=== PATIENT | female | born 1980 | race African-American/Black ===

== ENCOUNTER 2016-06-01 14:25 | Emergency (ER) ==
[2016-06-01] MEDS ORDERED: ZOFRAN ODT PO ONE (14:48)
[2016-06-01] MEDS ORDERED: TORADOL IM ONE (14:48)
--- NOTE | 2016-06-01 14:56 | PROVIDER DOCUMENTATION ---
HPI-Abdominal Pain/GI Problem - General Chief Complaint: Flank Pain Stated Complaint: BACK/LEG PAIN Time Seen by Provider: 06/01/16 14:39 Source: patient Allergies/Adverse Reactions: Patient Allergies Allergy/AdvReac Type Severity Reaction Status Date / Time No Known Allergies Allergy Verified 11/11/14 11:17 Home Medications: Home Medication List Medication Instructions Recorded Confirmed Last Taken Type Famotidine [Pepcid] 20 mg PO DAILY #20 tablet 06/01/16 Unknown Rx Ketorolac [Toradol] 10 mg PO Q6H PRN PRN #20 tablet 06/01/16 Unknown Rx Ondansetron [Zofran] 4 mg PO Q6H PRN PRN #20 tablet 06/01/16 Unknown Rx - History of Present Illness-ABD Nature of Presenting Problems: 35 y/o AAF c/o pain in the RLQ that radiates down the leg, began 2 days ago. Saw college or university department head last week, who did urine and vaginal US, both of which were normal. Reports nasuea, no vomiting or diarrhea. Denies fevers, chills or weight loss. Was on an antibiotic 3 weeks ago for uti. Had blood in her urine when the college or university department head saw her and was supposed to refer her to a urologist. Abdominal Pain Onset Location: reports: RLQ Pain Radiation: reports: groin Quality of Pain: reports: aching, stabbing Severity in ED: reports: moderate Onset/Duration: reports: other (2 weeks) Timing: reports: still present, intermittent Modifying Factors: worse with: analgesics, antacids, breathing, cold/heat therapy, coughing, defecating, eating, exercise, immobilization, lying down, massage, movement, other medication, palpation, rest, urinating, vomiting Associated Symptoms: reports: loss of appetite, nausea. denies: anxiety, arm pain, back/neck pain, chest pain, constipation, cough, diaphoresis, diarrhea, dizziness, EENT symptoms, fatigue, fever/chills, genitourinary problems, headaches, heartburn, joint pain, malaise, muscle aches, sinus congestion/ drainage, rash, seizure, shortness of breath, sensory/motor loss, pain with inspiration, swelling/mass in abdomen, syncope, vomiting, weakness, trouble walking Review of Systems - Adult - REVIEW OF SYSTEMS - ADULT Constitutional: reports: no symptoms reported. denies: chills, fever, fatique Eyes: reports: no symptoms reported. denies: blurred vision, double vision, eye pain Ears, Nose, Mouth & Throat: reports: no symptoms reported. denies: ear pain, nose pain, loose teeth, throat pain Cardiovascular: reports: no symptoms reported. denies: chest pain, irregular heart rate, palpitations Respiratory: reports: no symptoms reported. denies: cough, shortness of breath Gastrointestinal: reports: abdominal pain, nausea, poor appetite. denies: constipation, diarrhea, vomiting Genitourinary: reports: no symptoms reported. denies: dysuria, discharge, frequency, flank pain, hematuria, urgency Musculoskeletal: reports: no symptoms reported. denies: bone pain, back pain, muscle aches Integumentary: reports: no symptoms reported. denies: rash Neurological: reports: no symptoms reported. denies: headache/migraines Psychiatric: reports: no symptoms reported Endocrine: reports: no symptoms reported Hematologic/Lymphatic: reports: no symptoms reported Allergic/Immunologic: reports: no symptoms reported All Other Systems: Reviewed and Negative Past History - Adult - PAST MEDICAL HISTORY-ADULT Review of Records: reports: Old Records Reviewed, Nursing Assessment Review, Medications Reviewed, Social history reviewed & non-contributory. Major Childhood Illnesses: reports: denies history Cardiovascular: reports: denies history Respiratory: reports: asthma Gastrointestinal: reports: denies history Obstetrical/Gynecological: reports: denies history Genitourinary: reports: denies history Musculoskeletal: reports: denies history Neurological: reports: denies history Psychiatric: reports: anxiety Endocrine/Immune: reports: denies history Other Conditions: reports: denies history - PRIOR SURGERIES/PROCEDURES Surgical/Procedure History: reports: other (one ovary removed, has uterus and the other ovary (unable to remember which one)) - PRIOR HOSPITALIZATIONS Prior Hospitalizations: reports: none - IMMUNIZATION STATUS Childhood Immunizations: UTD - FAMILY HISTORY Family History: reviewed, not pertinent - SOCIAL HISTORY Smoking: non-smoker Substance Use: none/never Alcohol Use Frequency: occasionally Physical Exam-General - PHYSICAL EXAM-ADULT Initial Vital Signs Reviewed: Yes - CONSTITUTIONAL General Appearance: appears well, alert, no apparent distress - EYES Eyes: PERRL/EOMI, pink conjunctivae - HEAD, EARS, NOSE, MOUTH & THROAT HENMT: normocephalic/atraumatic, moist mucous membranes - NECK Neck: normal inspection - RESPIRATORY Respiratory: chest non-tender, lungs clear, normal breath sounds, no pleuratic chest pain, no respiratory distress, no accessory muscle use. negative: respiratory distress, decreased breath sounds, accessory muscle use, crackles, rales, rhonchi, wheezing - CARDIOVASCULAR Cardiovascular: normal peripheral pulses, regular rate, rhythm - GASTROINTESTINAL (ABDOMEN) Abdominal Exam: normal bowel sounds, soft, no organomegaly, no pulsatile mass, tenderness (rlq). negative: abdominal bruit, abnormal bowel sounds, distended, guarding, rigid, rebound - MUSCULOSKELETAL Back Exam: no CVA tenderness, no vertebral tenderness. negative: CVA tenderness Extremity: normal gait - SKIN Integumentary: normal color, normal turgor, warm/dry - NEUROLOGIC Neurologic: grossly normal, no motor/sensory deficits - PSYCHIATRIC Psych/Mental Status: normal mood/affect, normal thought content, normal thought process, oriented x 3 Progress - PLAN OF CARE/RESULTS Progress/Plan/Lab Results: Vital Signs Temp Pulse Resp BP Pulse Ox 06/01/16 14:28 98 F 81 18 119/83 98 No Known Allergies Allergy (Verified 11/11/14 11:17) No Home Medications 06/01/16 Laboratory 06/01/16 06/01/16 06/01/16 15:30 15:30 14:53 WBC 5.28 RBC 3.81 L Hgb 11.2 L Hct 33.6 L MCV 88.2 MCH 29.4 MCHC 33.3 RDW Std Deviation 12.7 Plt Count 270 MPV 8.7 Immature Gran % (Auto) 0.2 Neut % (Auto) 39.8 L Lymph % (Auto) 44.3 [place] % (Auto) 8.5 Eos % (Auto) 6.3 Baso % (Auto) 0.9 H Immature Gran # (Auto) 0.01 Neut # (Auto) 2.10 Lymph # (Auto) 2.34 [place] # (Auto) 0.45 Eos # (Auto) 0.33 Baso # (Auto) 0.05 Sodium 137 Potassium 4.0 Chloride 102 Carbon Dioxide 27 Anion Gap 8 BUN 10 Creatinine 0.8 Estimated GFR/1.73 m2 > 60 BUN/Creatinine Ratio 13 Glucose 90 Calculated Osmolality 272 Calcium 9.1 Total Bilirubin 0.30 AST 13 ALT 7 L Alkaline Phosphatase 42 Total Protein 7.1 Albumin 4.3 Globulin 3.0 Albumin/Globulin Ratio 2.0 Urine Source CLEAN CATCH Urine Color YELLOW Urine Clarity CLEAR Urine pH 7.0 Ur Specific [place] 1.015 Urine Protein TRACE A Urine Ketones NEGATIVE Urine Blood 4+ Urine Nitrite NEGATIVE Urine Bilirubin NEGATIVE Urine Urobilinogen NORMAL Urine Microscopic RBC 20-40 A Urine WBC TRACE A Urine Microscopic WBC <10 Ur Epithelial Cells >10 A Urine Glucose NEGATIVE Orders Category Date Time Status ED: Urine Bedside ORDERED Care 06/01/16 14:40 Active LUMBAR SPINE [RAD] Stat Exams 06/01/16 14:40 Completed RENAL STONE SEARCH [CT] Stat Exams 06/01/16 15:45 Taken CBC WITH ELECTRONIC DIFF [HEME] Stat Lab 06/01/16 15:30 Completed CMP [COMPREHENSIVE METABOLIC PANEL] [CHEM] Stat Lab 06/01/16 15:[address] W/POSS RFLX CULT [URINALYSIS] Stat Lab 06/01/16 14:53 Completed Ketorolac [Toradol] Med 06/01/16 14:48 Discontinued 30 mg IM NOW ONE Ondansetron Odt [Zofran Odt] Med 06/01/16 14:48 Discontinued 4 mg PO NOW ONE - XRAY 1 XRAY: Bilateral XRAY Study: Lumbar Spine Impression: Normal (NAD per radiology) - CT/MRI 1 CT Study: Renal Stone Impression: Normal (no renal stones, urolithiasis, appendix wnl. NAD per Dr. Victoria, radiology) Departure - Departure Time of Disposition Order: 16:17 DIAGNOSIS: Hematuria Disposition: HOME 01 Certified Medical Emergency: Emergent Condition: Stable Additional Instructions: Follow up with Dr. Thomson, urologist ED Follow Up Instructions: You have been treated by a care provider in the Emergency Department. These instructions are being provided to you so you can have an understanding of how to care for yourself upon discharge. Upon discharge from the Emergency Department, you are responsible for making arrangements for follow-up care by a physician of your choice. Take all prescribed medications as directed. Return to the Emergency Department immediately for any new or worsening symptoms. You may call the Physician Referral phone number at [phone] to obtain a list of Physicians who are taking new patients. Prescriptions: Famotidine [Pepcid] 20 mg PO DAILY #20 tablet Ketorolac [Toradol] 10 mg PO Q6H PRN PRN #20 tablet PRN Reason: Pain Ondansetron [Zofran] 4 mg PO Q6H PRN PRN #20 tablet PRN Reason: Nausea Referrals: Jann Carrero MD [Primary Care Provider] - Ryan Thomson MD [STAFF PHYSICIAN] - Attestation - Physician/ BRITTANY Attestation Patient care was provided by Advanced Practice Provider:: Yes Advanced Practice Provider:: Thania Mendoza Advanced Practice Provider documentation review:: The Mid-level provider documentation, treatment plan and medical decision making was reviewed by the physician who agrees with all treatment and medical decision making by the MLP.
--- NOTE | 2016-06-01 15:31 | Diag Imaging Result Document ---
PROCEDURE NAME: LUMBAR SPINE - 06/01/2016 LUMBAR SPINE AP AND LATERAL WITH OBLIQUES, SIX VIEWS: FINDINGS: There is mild scoliosis. No compressed vertebra. No subluxation. No bone spurring. IMPRESSION: Mild scoliosis, otherwise negative exam.
[2016-06-01 15:32] LABS: URINE CULTURE PL NEEDED? NO; URINE SOURCE CLEAN CATCH
[2016-06-01 15:36] LABS: MANUAL DIFF NEEDED? NO
[2016-06-01 15:38] LABS: BILIRUBIN URINE NEGATIVE (NEGATIVE); BLOOD URINE 4+ (NEGATIVE); CLARITY CLEAR (CLEAR); COLOR YELLOW; GLUCOSE URINE NEGATIVE (NEGATIVE); LEUKOCYTES URINE TRACE (NEGATIVE); NITRITE URINE NEGATIVE (NEGATIVE); PROTEIN URINE TRACE mg/dL (NEGATIVE); SP GRAVITY URINE 1.015; UROBILINOGEN URINE NORMAL
[2016-06-01 15:40] LABS: BASO% 0.9 % (0.0-0.8); EOS# 0.33 X1000 (0.0-0.7); EOS% 6.3 % (0.0-10.0); HEMATOCRIT 33.6 % (37.0-47.0); HEMOGLOBIN 11.2 g/dL (12.0-16.0); IMM GRAN# 0.01 X1000 (0.0-0.04); IMM GRAN% 0.2 % (0.0-0.5); LYMPH# 2.34 X1000 (1.2-3.4); LYMPH% 44.3 % (20.5-51.1); MCH 29.4 PG (27-31); MCHC 33.3 g/dL (33-37); MCV 88.2 FL (81-99); MONO# 0.45 X1000 (0.11-0.59); MONO% 8.5 % (1.7-9.3); MPV 8.7 FL (7.4-10.4); NEUT% 39.8 % (42.2-75.2); PLT 270 X1000 (130-400); RBC 3.81 XMIL (4.2-5.4)
[2016-06-01 15:48] LABS: URINE EPITHELIAL CELLS >10 /HPF (<10); URINE RBC 20-40 /HPF (<10); URINE WBC <10 /HPF (<10)
[2016-06-01 15:56] LABS: AGAP 8; ALBUMIN 4.3 g/dL (3.5-5.0); ALKALINE PHOSPHATASE 42 U/L (32-104); BUN 10 mg/dL (8-22); CALCIUM 9.1 mg/dL (8.8-10.2); CHLORIDE 102 mmol/L (98-107); COSMO 272; GOT 13 U/L (10-30); GPT 7 U/L (10-36); SODIUM 137 mmol/L (136-145); TCO2 27 mmol/L (25-35); TOTAL PROTEIN 7.1 g/dL (6.3-8.3)
--- NOTE | 2016-06-01 16:31 | Diag Imaging Result Document ---
PROCEDURE NAME: RENAL STONE SEARCH - 06/01/2016 CT ABDOMEN AND PELVIS WITHOUT CONTRAST/RENAL STONE PROTOCOL: COMPARISON: 02/09/2016. FINDINGS: The gallbladder is partially contracted and is grossly unremarkable, otherwise. There are no discrete renal or ureteral stones, and there is no evidence of hydronephrosis. The urinary bladder is unremarkable. The appendix appears normal. No discrete adnexal masses are identified. No focal inflammatory changes, free abdominal gas, or free fluid is identified. The remainder of the solid viscera of the abdomen and pelvis and the remainder of the GI tract is essentially unremarkable. IMPRESSION: 1. No definite renal or ureteral stones and no evidence of acute obstructive uropathy. 2. No evidence of acute pathology, otherwise.
[2016-06-01 16:41] VITALS: BP 141/74
== END 2016-06-01 16:41 | disposition home or self-care (01) ==
LOC: P.ED 14:25
DX: R31.9 Hematuria, unspecified (principal); R10.31 Right lower quadrant pain; M79.604 Pain in right leg; R11.0 Nausea; M54.9 Dorsalgia, unspecified; R10.813 Right lower quadrant abdominal tenderness; Z90.721 Acquired absence of ovaries, unilateral
CPT/HCPCS: 36415; 72110; 74176; 80053; 81001; 81025; 85025; 96372; J1885